=== PATIENT | male | born 1960 | race Caucasian/White ===

== ENCOUNTER → 2017-12-20 | Outpatient (CLI) | payer MEDICARE, MEDICAID ==
[2017-12-20 14:55] LABS: ABG BASE EXCESS 4.7 MMOL/L (-2.5-2.5); ABG OXYGEN SATURATION 98 % (94-100); ABG PCO2 44 MMHG (35-45); ABG PH 7.43 (7.37-7.43); ABG PO2 86 MMHG (79-93); ABG TCO2 30.3 MMOL/L (21.0-31.0); ALLENS TEST YES-POS; INSPIRED O2 RA; PATIENT TEMP 97.9; VENTILATOR NO
--- NOTE | 2017-12-20 16:19 | Diagnostic Imaging Report ---
INDICATION: Shortness of breath and cough. TECHNIQUE: PA and lateral views of the chest were obtained at 3:04 PM. FINDINGS: The heart is borderline in size. The mediastinal silhouette is unremarkable. The lungs are clear. There is no pneumothorax or pleural fluid. IMPRESSION: Borderline heart size with no acute process in the chest. Dictated by: Dictated on workstation # [id number]
== END ==
LOC: RAD 14:28
PROVIDERS: ATTEND Nurse Practitioner Family
DX: J44.9 Chronic obstructive pulmonary disease, unspecified (principal); I82.409 Acute embolism and thrombosis of unspecified deep veins of unspecified lower extremity; F17.201 Nicotine dependence, unspecified, in remission; I26.99 Other pulmonary embolism without acute cor pulmonale; F19.99 Other psychoactive substance use, unspecified with unspecified psychoactive substance-induced disorder
CPT/HCPCS: 36600; 71046; 82805